=== PATIENT | male | born 1990 | race Two or more races ===

== ENCOUNTER 2019-03-03 01:52 | Emergency (ER) | payer OTHER ==
[~2019-03-03] VITALS: Ht 162.6 cm; Wt 59.0 kg
[2019-03-03] MEDS ORDERED: LIDOCAINE HCL 1% 20 ML VIAL IJ ONE (02:30)
--- NOTE | 2019-03-03 02:30 | NUR ---
Pt. ambulated into ED w/ R bucal abscess x 3 days, states he popped a pimple x3 days ago and it became infected, went to Urgent care where he was prescribed Bactrim but abscess continued to grow, A/Ox4, RR even and unlabored, speaks in clear and complete sentences, no SOB/CP/COLLIER/F/C/N/V/D
--- NOTE | 2019-03-03 03:13 | NUR ---
Patient discharged to home in stable conditon. Written and verbal after care instructions given. Patient verbalizes understanding of instructions. Pt. d/c w/ prescription per MD order, d/c papers signed, all belongings w/ pt., ID band removed, instructed not to drive, ambulated off unit w/ steady gait, NAd
== END 2019-03-03 03:16 | disposition home or self-care (01) ==
LOC: ER 01:55
DX: L02.01 Cutaneous abscess of face (principal); F12.10 Cannabis abuse, uncomplicated
CPT/HCPCS: A4663; J3490